=== PATIENT | male | born 1945 | race Caucasian/White ===

== ENCOUNTER → 2016-09-24 | Outpatient (CLI) | payer MEDICARE ==
[~2016-09-24] MED LIST: CARDURA8 MG PO; FLEXERIL10 MG PO; HYDROCHLOROTH12.5 M1 PO; LOTENSIN20 MG PO; NAPROSYN500 MG PO; NEURONTIN300 MG PO; NORCO 7.5-3251 EACH PO; NORVASC10 MG PO; PRESERVISION A1 EAC2 PO; TENORMIN100 MG PO; VITAMIN B-6100 MG PO; ZYLOPRIM300 MG PO
== END | disposition disaster alternative care site (69) ==
LOC: GRAD 17:24
DX: M16.11 Unilateral primary osteoarthritis, right hip (principal)

== ENCOUNTER → 2016-10-30 | Outpatient (CLI) | payer MEDICARE ==
[~2016-10-30] MED LIST changes: +LOTENSIN10 MG PO; -LOTENSIN20 MG PO
--- NOTE | ~2016-10-30 | ECHO ---
Transthoracic Echocardiography Report (TTE) Demographics Patient Name VENTURA PHIPPS Date of Study 10/30/2016 Patient Number [id number] Visit Number [id number] Date of 1945 Room Number Accession Number [id number] Gender Male Age 71 year(s) Referring Arnol Raghu J Pharmacy Teacher Geronimo Slater RVT, Physician MD ZACH Sheldon MD Physician Interpreting Shar Tillman Plastic Mixer Physician Supervising Ordering Physician Winsome Everett MD/MLP PA Nurse Stress Seo Professional Conclusions Summary Normal LV/RV size and systolic function. The estimated left ventricular ejection fraction is 60%. Moderate to severe concentric left ventricular hypertrophy. Diastolic assessment reveals Grade II pseudonormal diastolic function . Mildly dilated right ventricle with normal systooic function. Severe left atrial enlargement. Mild mitral regurgitation by color Doppler. There is severe aortic stenosis by the Continuity Equation. The peak velocity is 4.5 m/s, the mean gradient is 52 mmHg, and the valve area based on the continuity equation is 0.74 cm2, stroke volume index is 34.62 ml/m2. There is trivial aortic regurgitation by color Doppler. Trivial posterior pericardial effusion. Procedure Type of Study TTE procedure:2D Echocardiogram. Procedure Date Date: 10/30/2016 Start: 03:05 PM Study Location: Echo Lab Technical Quality: Adequate visualization Indications:Heart Murmur. Appropriate Use Criteria: 8 Patient Status: Routine Rhythm: NSR HR: 65 bpm M-Mode/2D Measurements LV Diastolic Dimension: 4.62 cm LV Systolic Dimension: 3.08 cm LV Septum Diastolic: 2.11 cm LV PW Diastolic: 1.35 cm AO Root Dimension: 2.6 cm Cardiac Output: 5.24 l/min LA Dimension: 5.4 cm EF Estimated: 60 % LVOT: 2.1 cm LVOT VTI: 23.3 cm RV Base: 4.44 cm LV Stroke volume: 80.66 ml TAPSE: 3.13 cm TDI-S': 17 cm/s Doppler Measurements AV Peak Velocity: 4.53 m/s MV Peak E-Wave: 1.06 m/s AV Peak Gradient: 82.08 mmHg MV Peak A-Wave: 0.74 m/s AV Mean Gradient: 52 mmHg MV E/A Ratio: 1.43 LVOT Peak Velocity: 0.84 m/s MV Deceleration Time: 313 msec PV Peak Velocity: 1.05 m/s PV Peak Gradient: 4.41 mmHg E' Septal Velocity: 0.05 m/s A' Septal Velocity: 0.09 m/s E' Lateral Velocity: 0.05 m/s A' Lateral Velocity: 0.08 m/s Findings Left Ventricle Moderate to severe concentric left ventricular hypertrophy. Diastolic assessment reveals Grade II pseudonormal diastolic function . Right Ventricle Mildly dilated right ventricle with normal function. Left Atrium The left atrium is severely dilated. There is no evidence of patent foramen ovale or atrial septal defect by color Doppler. Right Atrium The right atrium is mildly dilated. IVC measures 2.60 cm with inspiratory collapse. Mitral Valve Mild mitral annular calcification. Mild calcification of the mitral valve. Mild mitral regurgitation by color Doppler. Aortic Valve There is severe aortic stenosis by the Continuity Equation. The peak velocity is 4.5 m/s, the mean gradient is 52 mmHg, and the valve area based on the continuity equation is .74 cm2, stroke volume index is 34.62 ml/m2. There is trivial aortic regurgitation by color Doppler. Tricuspid Valve Normal tricuspid valve structure and function. Pulmonic Valve Normal pulmonic valve structure and function. Pericardial Effusion Trivial posterior pericardial effusion. Miscellaneous Visualized portions of the aortic root and ascending aorta appear normal in size. Pleural Effusion No evidence of pleural effusion. Preliminary report given to Dr. [place]. Contractility Score LV regional wall motion:(0-Non visualized 1-Normal 2-Hypokinesis 3-Akinesis 4-Dyskinesis 5-Aneurysm) Signature dtt: ABRAHAM ROSAS dtd: 10/30/16 1505 Physician Self Edit
== END | disposition disaster alternative care site (69) ==
LOC: GCAR 15:00
DX: R01.1 Cardiac murmur, unspecified (principal); I50.30 Unspecified diastolic (congestive) heart failure; I08.0 Rheumatic disorders of both mitral and aortic valves; I31.4 Cardiac tamponade